=== PATIENT | male | born 1995 | race American Indian/Alaskan Native ===

== ENCOUNTER 2020-02-17 06:18 | Emergency (ER) | payer SELFPAY ==
[2020-02-17 06:37] VITALS: BP 145/74
--- NOTE | 2020-02-17 07:02 | XRay Report ---
EXAMINATION: Right wrist radiograph, 2 views, 02/17/2020 CLINICAL INFORMATION: Right wrist pain and swelling COMPARISON: None. FINDINGS: There is no evidence of acute fracture or wrist dislocation. No focal soft tissue swelling is identified. Signer Name: Aria Eugene MD Signed: 02/17/2020 6:58 AM Workstation Name: [id number]
--- NOTE | 2020-02-17 07:45 | Emergency Department Report ---
Upper Extremity - HPI Chief Complaint: Extremity Injury, Upper Stated Complaint: R WRIST PAIN Time Seen by Provider: 02/17/20 07:35 Other History: This is a pleasant 24-year-old male who presents the emergency department chief complaint of right wrist pain and swelling at the base of his thumb over the past week. 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 He denies any specific injury. He reports pain is an 8 out of 10 describes dull and throbbing. He denies any known past medical history, current medication use or known allergies to medications. He denies any associated fever, chills, night sweats, headache, dizziness, blurry vision, nausea, vomit, diarrhea, chest pain, shortness of breath. ED Review of Systems ROS: Stated complaint: R WRIST PAIN Other details as noted in HPI Constitutional: denies: chills, fever Eyes: denies: eye pain, eye discharge, vision change ENT: denies: ear pain, throat pain Respiratory: denies: cough, shortness of breath, wheezing Cardiovascular: denies: chest pain, palpitations Endocrine: no symptoms reported Gastrointestinal: denies: abdominal pain, nausea, diarrhea Genitourinary: denies: urgency, dysuria Musculoskeletal: as per HPI, arthralgia. denies: back pain, joint swelling Skin: denies: rash, lesions Neurological: denies: headache, weakness, paresthesias Psychiatric: denies: anxiety, depression Hematological/Lymphatic: denies: easy bleeding, easy bruising ED Past Medical Hx - Past Medical History Previous Medical History?: No - Surgical History Past Surgical History?: Yes Additional Surgical History: B/L Hip - Social History Smoking Status: Current Every Day Smoker Substance Use Type: Marijuana - Medications Home Medications: Home Medications Medication Instructions Recorded Confirmed Last Taken Type Naproxen 500 mg PO BID #20 tablet 02/17/20 Unknown Rx methylPREDNISolone [Medrol 4MG 4 mg PO ONCE #1 tab.ds.pk 02/17/20 Unknown Rx DOSEPAK (21 tabs)] Upper Extremity Exam - Exam General: Vital signs noted. No distress. Alert and acting appropriately. Head and Torso: No HEENT Abnormality, No Neck Tenderness, No Chest/Lungs Abnormality, No Abdominal Tenderness, No Back Tenderness Shoulder Exam: Yes Normal Range of Motion in Shoulder, No Shoulder Tenderness, No Clavicle Tenderness, No Shoulder Deformity, No AC Joint Tenderness Arm Exam: No Arm/Humerus Tenderness, No Arm Deformity Elbow: No Elbow Tenderness, No Normal Range of Motion in Elbow, No Elbow Deformity Forearm: No Forearm Tenderness, No Forearm Deformity, No Pain with Pronation, No Pain with Supination Wrist: Yes Wrist Tenderness (Tenderness palpation at the base of the thumb. Pain with Lucila's test. Otherwise normal passive range of motion without pain.), Yes Normal ROM in Wrist, No Wrist Deformity, No Snuffbox Tenderness, No Pain with Axial Thumb Compression Hand: Yes Normal ROM in Digit(s), No Hand Tenderness, No Hand Deformity, No Digit Tenderness, No Digit(s) Deformity, No Tendon Dysfunction CMS Exam: No Broken Skin, No Normal Distal Pulses, No Normal Capillary Refill, No Normal Distal Sensation ED Course Vital Signs 02/17/20 06:34 Temperature 98.4 F Pulse Rate 69 Respiratory 17 Rate Blood Pressure 145/74 O2 Sat by Pulse 97 Oximetry ED Medical Decision Making - Radiology Data Radiology results: report reviewed, image reviewed XRay Report Signed Patient: CRYS RHODES MR#: [id number] : 1995 Acct:[id number] Age/Sex: 24 / M ADM Date: 02/17/20 Loc: ED Attending Dr: Ordering Physician: BONNIE LAWSON MD Date of Service: 02/17/20 Procedure(s): XR wrist 2V RT Accession Number(s): [id number] cc: ED MD RENNY Fluoro Time In Minutes: EXAMINATION: Right wrist radiograph, 2 views, 02/17/2020 CLINICAL INFORMATION: Right wrist pain and swelling COMPARISON: None. FINDINGS: There is no evidence of acute fracture or wrist dislocation. No focal soft tissue swelling is identified. Signer Name: Aria Eugene MD Signed: 02/17/2020 6:58 AM Workstation Name: [id number] Transcribed By: EB Dictated By: Aria Eugene MD Electronically Authenticated By: Aria Eugene MD Signed Date/Time: 02/17/20 0658 - Medical Decision Making Patient nontoxic in no acute distress. Vital signs stable. X-ray was unremarkable. 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 I will send him home with a steroid pack and a short course of pain medication recommended immobilization, ice, elevation and avoidance of activities that may exacerbate symptoms. He verbalized understand the diagnosis, treatment plan and follow-up instructions and all his questions were answered. - Differential Diagnosis Strain, sprain, tenosynovitis Critical care attestation.: If time is entered above; I have spent that time in minutes in the direct care of this critically ill patient, excluding procedure time. ED Disposition Clinical Impression: De Quervain's tenosynovitis, right Disposition: DC-01 TO HOME OR SELFCARE Is pt being admited?: No Condition: Stable Instructions: De Quervain's Tenosynovitis Prescriptions: methylPREDNISolone [Medrol 4MG DOSEPAK (21 tabs)] 4 mg PO ONCE #1 tab.ds.pk Naproxen 500 mg PO BID #20 tablet Referrals: SCOTT CLEANING MD [Staff Physician] - 3-5 Days Forms: Work/School Release Form(ED) Time of Disposition: 07:44
== END 2020-02-17 07:51 | disposition home or self-care (01) ==
LOC: ED 06:18
DX: M65.4 Radial styloid tenosynovitis [de Quervain] (principal); F17.200 Nicotine dependence, unspecified, uncomplicated; F12.90 Cannabis use, unspecified, uncomplicated; Z79.899 Other long term (current) drug therapy; Z98.890 Other specified postprocedural states

== ENCOUNTER 2020-07-14 10:10 | Emergency (ER) | payer SELFPAY ==
[2020-07-14 11:14] VITALS: BP 145/86
== END 2020-07-14 12:51 | disposition left against medical advice (07) ==
LOC: ED 10:10
DX: M54.6 Pain in thoracic spine (principal); M79.89 Other specified soft tissue disorders; Z53.21 Procedure and treatment not carried out due to patient leaving prior to being seen by health care provider